=== PATIENT | female | born 1950 | race Caucasian/White ===

== ENCOUNTER 2016-11-17 20:15 | Inpatient (IN) | payer MEDICARE, BC ==
[~2016-11-17] VITALS: Ht 167.6 cm; Wt 90.5 kg
[2016-11-17] MEDS ORDERED: LACTATED RINGER'S 1000 ML IV SCH (21:15)
[2016-11-17] MEDS ORDERED: INSULIN HUMAN REGULAR 1,000 UNITS/10 ML VIAL SQ PRN (21:15)
[2016-11-17] MEDS ORDERED: METOPROLOL TARTRATE 25 MG TAB PO PRN (21:15)
[2016-11-17 21:19] VITALS: BP 137/73; PULSE 61; RESP 18; TEMP 97.7; O2SAT 97
[2016-11-17] MEDS: SODIUM CHLORID 0.9% 500 ML IV SCH (21:58)
[2016-11-17] MEDS ORDERED: ACETAMINOPHEN/HYDROcodone 325 MG/7.5 MG TAB PO PRN (23:00)
[2016-11-17] MEDS ORDERED: MORPHINE SULFATE 4 MG/ML INJ IV PRN (23:00)
[2016-11-17] MEDS: ACETAMINOPHEN/HYDROcodone 325 MG/10 MG TAB PO PRN (23:23)
[2016-11-18 00:53] VITALS: BP 124/73; PULSE 70; RESP 18; TEMP 97.9; O2SAT 98
[2016-11-18] MEDS: ONDANSETRON HCL 4 MG/2 ML VIAL IVP PRN ×2 (03:45→18:35)
[2016-11-18 04:37] VITALS: BP 130/78; PULSE 60; RESP 18; TEMP 98.2; O2SAT 97
[2016-11-18] MEDS: ACETAMINOPHEN/HYDROcodone 325 MG/10 MG TAB PO PRN ×4 (05:53→21:18)
[2016-11-18 06:22] LABS: AUTOMATED NEUTROPHIL # 7.4 TH/MM3 (1.8-7.7); BASOPHIL # 0.1 TH/MM3 (0-0.2); BASOPHIL % 1.2 % (0.0-2.0); EOSINOPHIL # 0.3 TH/MM3 (0-0.4); EOSINOPHIL % 2.9 % (0.0-4.0); HEMO FLAGS DIFF FINAL; LYMPH % 19.4 % (9.0-44.0); LYMPHOCYTE # 2.1 TH/MM3 (1.0-4.8); MEAN CELL VOLUME 89.1 FL (80.0-100.0); MEAN CORPUSCULAR HEMOGLOBIN 30.3 PG (27.0-34.0); MEAN CORPUSCULAR HGB CONC 34.1 % (32.0-36.0); MONO % 6.9 % (0.0-8.0); NEUT % 69.6 % (16.0-70.0); PLATELET COUNT 213 TH/MM3 (150-450); RED BLOOD COUNT 4.04 MIL/MM3 (4.00-5.30); RED CELL DISTRIBUTION WIDTH 12.3 % (11.6-17.2); WHITE BLOOD COUNT 10.6 TH/MM3 (4.0-11.0)
--- NOTE | 2016-11-18 06:34 | PD.ORT.PN ---
Subjective Subjective Remarks s/p fall with left distal humerus fx reports left arm pain. no other complaints Objective Vitals Vital Signs Date Time Temp Pulse Resp B/P Pulse Ox O2 Delivery O2 Flow Rate FiO2 11/18/16 04:37 98.2 60 18 130/78 97 11/18/16 00:53 97.9 70 18 124/73 98 11/17/16 21:19 97.7 61 18 137/73 97 Result Diagram: 11/18/16 0534 Objective Remarks LUE: +long arm splint. full sensation to median/ulnar nerve. good wrist/finger extension. good cap refill Assessment & Plan Assessment and Plan 1) Left Distal Humerus Fx -consents -surgery today Tony Campos Nov 18, 2016 06:34
[2016-11-18 06:38] LABS: INTERNATIONAL NORMALIZED RATIO 0.9 RATIO; PROTHROMBIN TIME - PATIENT 9.7 SEC (9.8-11.6)
[2016-11-18 06:44] LABS: BICARBONATE 29.6 MEQ/L (21.0-32.0); POTASSIUM 4.3 MEQ/L (3.5-5.1)
[2016-11-18] MEDS ORDERED: PROPOFOL 200 MG/20 ML AMP IV ONE (07:51)
[2016-11-18] MEDS ORDERED: ePHEDrine/NS 50 MG/5 ML SYR IV ONE (07:51)
--- NOTE | 2016-11-18 07:57 | MH ---
cc: SOLANGE OCHOA DATE OF ADMISSION: 11/17/2016 REASON FOR ADMISSION Left distal humerus fracture. HISTORY OF PRESENT ILLNESS Fransisca Beltre is a 66-year-old female who lives near [place], [place]. She had a fall approximately 4 days ago at home. She landed on her left side. She had immediate left arm pain and deformity. She went to [facility] in [place]. X-rays revealed a displaced left distal humerus fracture. The patient was subsequently transferred to [place] for definitive treatment of this injury. She is unclear if she had any dizziness or syncope at the time. The patient has a history of hypertension and diabetes. The patient states that she stopped taking her diabetes and hypertensive medications several weeks ago and was trying some homeopathic treatment. She had very high blood sugars whenever she presented to the [facility]. She is currently awake and alert on the orthopedic floor. Her only complaint is her left arm. The pain is worse with movement and is improved with rest. PAST MEDICAL HISTORY ILLNESSES 1. Hypertension. 2. Diabetes. MEDICATIONS The patient had stopped her home medications prior to her fall. She normally takes Glucophage and an antihypertensive. ALLERGIES No known drug allergies. SOCIAL HISTORY The patient lives at home with her . She denies alcohol, tobacco or drug use. REVIEW OF SYSTEMS The patient denies headache, visual changes, neck pain, chest pain, shortness of breath, abdominal pain, nausea, vomiting, recent weight loss, numbness or tingling of extremities. She complains of left arm pain. FAMILY HISTORY Noncontributory. PHYSICAL EXAMINATION GENERAL: The patient is a well-developed, well-nourished 66-year-old female in no acute distress. She is awake and alert. She is alert and oriented x3. VITAL SIGNS: Temperature 98.2, pulse 60, respirations 18, blood pressure 130/78. O2 sat is 97% on room air. HEAD: The patient is normocephalic. Pupils are equal. NECK: Soft, nontender. Trachea is midline. CHEST: Lungs are clear. HEART: The patient has a regular heart rate. ABDOMEN: Soft, nontender, nondistended. EXTREMITIES: Examination of the right arm reveals no pain with shoulder, elbow or wrist motion. She has intact sensation in all fingers. She has good capillary refill in all fingers. Skin is intact. Radial pulse is palpable. Examination of left arm reveals minimal tenderness around her shoulder and wrist. She is diffusely tender around the distal humerus and elbow. She has pain with any movement of the shoulder or elbow. She has moderate swelling of her hand. She is able to flex and extend her fingers and sensation is intact in radial, ulnar and median nerve distributions. Examination of bilateral lower extremities reveals no significant pain with hip, knee or ankle motion. Skin is intact to both feet. Sensation is intact to both feet. She has good capillary refill in her toes. X-RAYS X-rays of the left humerus were reviewed. X-rays reveal a displaced left distal humerus shaft fracture. IMPRESSION 1. Hypertension. 2. Diabetes. 3. Displaced left distal humerus fracture. PLAN The treatment options were discussed with the patient. At this point I would recommend open reduction, internal fixation of left distal humerus. The risks of surgery include bleeding, infection, injuries to arteries, nerves and blood vessels, nonunion, malunion, injury to radial nerve, weakness or numbness of hand, as well as medical complications including blood clot, stroke, heart attack and . All questions were answered. I will plan on surgery today. A mid-level provider in my office (nurse practitioner or physician gift shop assistant) may see this patient on follow-up visits and continue to implement the objectives of this plan including: Starting or adjusting medications, injections , cast application, orthotics, brace application, physical therapy, radiological studies (including x-ray, MRI, CT, ultrasound, bone scan), vascular studies, neurologic studies, specialist consultation, and proceeding with surgical management, as appropriate. MD FRANCHESCA Field/ARNOLD /7:26 AM /7:41 AM RAMÓN
[2016-11-18 08:06] VITALS: BP 182/98; PULSE 69; RESP 16; TEMP 97.7; O2SAT 100
[2016-11-18] MEDS ORDERED: GENTAMICIN SULFATE 80 MG/2 ML VIAL ONE (08:22)
[2016-11-18] MEDS ORDERED: ACETAMINOPHEN 1000 MG/100 ML VIAL IV ONE (08:30)
[2016-11-18] MEDS ORDERED: ONDANSETRON HCL 4 MG/2 ML VIAL ONE (08:31)
[2016-11-18] MEDS ORDERED: DEXAMETHASONE SOD PHOS 4 MG/ML VIAL ONE (08:31)
[2016-11-18] MEDS ORDERED: FAMOTIDINE 20 MG/2 ML VIAL ONE (08:31)
[2016-11-18] MEDS ORDERED: VANCOMYCIN HCL 1000 MG VIAL ONE (08:44)
[2016-11-18] MEDS ORDERED: ceFAZolin INJ 1,000 MG VIAL ONE (08:44)
[2016-11-18] MEDS ORDERED: SODIUM CHLOR 0.9% 250 ML INJ 250 ML ONE (08:45)
[2016-11-18] MEDS ORDERED: INFLUENZA VIRUS VACCINE (QUADRIVALENT) 0.5 ML SYR IM ONE (10:00)
[2016-11-18] MEDS ORDERED: MORPHINE SULFATE 4 MG/ML INJ IV PUSH PRN (11:00)
[2016-11-18] MEDS ORDERED: SODIUM CHLORIDE 0.9% FLUSH 5 ML FLUSH IVF PRN (11:00)
[2016-11-18] MEDS ORDERED: diphenhydrAMINE HCL 25 MG CAP PO PRN (11:00)
--- NOTE | 2016-11-18 11:05 | PD.OP ---
cc: Ramon Goddard MD Operative Report Date of Surgery: Nov 18, 2016 Preoperative Diagnosis: Left humerus shaft fracture Postoperative Diagnosis: Procedure: Open reduction internal fixation left humerus Anesthesia: Gen. Surgeon: Ramon Goddard Strategic Development Manager(s): SAGE Campos PA-C The surgical procedure was assisted by my physician customer relations assistant. My P.A. presence was necessary throughout this case for the manipulation and positioning of the surgical extremity. My P.A. was assisting me throughout the duration of this procedure. The skill set of a physician customer relations assistant was medically necessary to complete this procedure. During the surgical case the information technology audit manager was working at the back table and the physician customer relations assistant was directly assisting me. Operation and Findings: Patient was seen and evaluated preoperatively. Treatment options were discussed regarding humerus fracture including surgical and nonsurgical treatments. After detailed discussion of risk and benefits of procedure patient wishes to proceed with surgery. Risks of surgery include bleeding, infection, nonunion, malunion, painful hardware, loss of motion of shoulder and elbow, weakness and numbness of arm, as well as medical competitions including blood clots stroke and . Patient was brought to operating room and placed on the OR table. GETA was administered by anesthesiologist. Patient was positioned in lateral decubitus position. Extremities were well-padded. Axillary roll was placed. Operative arm and shoulder were prepped with alcohol followed by Hibiclens and draped usual sterile fashion. Timeout procedure was performed. IV antibiotics were given prior to incision. A standard posterior approach was utilized. Subcutaneous tissues was dissected with Bovie. The triceps muscle was split midline. Distally the lateral border of the triceps was elevated. The radial nerve was identified and protected throughout the procedure. The nerve was intact. The fracture was identified. Soft tissue was removed from the fracture site. Fracture site was cleaned with curettes. At this point the fracture was reduced using fracture tenaculums. Multiplanar fluoroscopy confirmed excellent of fracture. A Synthes 3.5 plate was contoured to fit the humerus. Plate was provisionally held the bone with K wires. 3.5 cortical lag screws were placed through the plate. Good compression was obtained across the fracture site. Next, 3.5 cortical screws were placed on each side of the fracture to compress plate to bone. Multiple screws were placed in each side of the fracture. All screws were predrilled and premeasured for appropriate length. Final fluoroscopy revealed excellent alignment of fracture with well-placed hardware. Incision was thoroughly irrigated. Fascia was closed with #1 Vicryl, subcutaneous tissues closed with 3-0 Vicryl, and skin was closed with darrius. Sterile dressings were applied. Needle and sponge counts were correct. Patient was placed into a sling, and then transferred to recovery room in stable condition Ramon Goddard MD Nov 18, 2016 11:05
[2016-11-18] MEDS ORDERED: HYDR-3366 PO (11:34)
--- NOTE | 2016-11-18 11:36 | HHI.FF ---
Face to Face Verification Diagnosis: (1) Right humeral fracture Occupational Therapy Right UE Weight Bearing: Non WB Right UE Range of Motion: Passive ROM Nursing Nursing: Juanita teaching, Dressing changes Dressing Changes: Daily dressing change, Galdino wrap, 4x4s, Xeroform, Coverderm/ Primapore (ok to switch to coverderm/primapore once drainage has stopped) I have seen patient Fransisca Araya on 11/18/16. My clinical findings support the need for the requested home health care services because: Ltd mobility - disease progression I certify that my clinical findings support that this patient is homebound because: Post-op weakness Tony Campos Nov 18, 2016 11:36
[2016-11-18] MEDS ORDERED: LABETALOL HCL 100 MG/20 ML VIAL ONE (11:44)
[2016-11-18] MEDS ORDERED: fentaNYL CITRATE 250 MCG/5 ML AMP ONE (11:53)
[2016-11-18] MEDS ORDERED: DO NOT ADM ANY ANTICOAGULANT DRUGS XX PRN (12:00)
[2016-11-18] MEDS ORDERED: *ONDANSETRON 4 MG VIAL PERIprocedural Use ONLY ONE (12:01)
[2016-11-18] MEDS ORDERED: LORazepam 2 MG/ML VIAL ONE (12:15)
[2016-11-18] MEDS: CALCIUM/VITAMIN D 250 MG/125 U TAB PO SCH ×2 (13:00→17:04)
--- NOTE | 2016-11-18 13:43 | RADRPT ---
EXAM DATE/TIME: 11/18/2016 10:46 [facility] COMPARISON: No previous studies available for comparison. INDICATIONS: ORIF left humerus. MEDICAL HISTORY: None. SURGICAL HISTORY: None. ENCOUNTER: Initial ACUITY: 1 day PAIN SCORE: Non-responsive. LOCATION: Left humerus. FINDINGS: Plate with screws is seen bridging the humerus fracture. Alignment is anatomic. CONCLUSION: Anatomic alignment. Cesar Peralta MD FACR on November 18, 2016 at 12:59 Board Certified Radiologist. This report was verified electronically.
[2016-11-18] MEDS: SODIUM CHLORID 0.9% 500 ML IV SCH (13:55)
--- NOTE | 2016-11-18 14:46 | PD.CONS ---
[facility] service Reason for Consult Management of hypertension, history of diabetes type 2 Primary Care Physician Non-Staff Diagnoses: History of Present Illness Patient is a 66-year-old female with known history of hypertension, diabetes type 2 her on her own decided to discontinue all her medications and going to alternate alternative medications a year ago. In the past she was on glyburide. She was transferred here from [facility] after tripping on something on the ground and sustained an oblique fracture of the left humeral shaft.. She was admitted under orthopedic service and underwent procedure. [facility] management of hypertension and diabetes. Patient currently denies any pain nausea or vomiting. Baseline is up ambulatory with no assistive device. She doesn't regular check her blood sugars. On review of transfer records from [facility] her hemoglobin A1c was 12.6 .. she was started on Norvasc 10 mg daily and Levemir 10 units at bedtime. An echo was done which shows an ejection fraction of 80%. She was placed on hydrocodone 5/325 when necessary every 6 for pain Review of Systems Constitutional: DENIES: Fever, Weight loss, Chills, Change in appetite Eyes: DENIES: Blurred vision, Double Vision Ears, nose, mouth, throat: DENIES: Tinnitus, Ear Pain, Epistaxis, Odynophagia Respiratory: DENIES: Cough, Hemoptysis, Sputum production, Shortness of breath Cardiovascular: DENIES: Chest pain, Palpitations, Dyspnea on Exertion, Lower Extremity Edema, Orthopnea Gastrointestinal: DENIES: Black stools, Bloody stools, Difficulty Swallowing, Anorexia Genitourinary: DENIES: Urgency, Hematuria, Vaginal discharge Musculoskeletal: DENIES: Joint pain, Stiffness Integumentary: DENIES: Pruritus Hematologic/lymphatic: DENIES: Bruising Immunologic/allergic: DENIES: Urticaria Neurologic: DENIES: Headache, Speech Problems, Tremor Psychiatric: DENIES: Suicidal Ideation, Homicidal Ideation Past Family Social History Allergies: Coded Allergies: No Known Allergies (Unverified , 11/17/16) patient reports NKA Past Medical History Hypertension Diabetes type 2 History of arthritis Past Surgical History Hysterectomy Gallbladder surgery Reported Medications Per family at one point she was on glyburide which she took herself off medications Some antihypertensive medications a year ago. Family History Noncontributory Social History Nonsmoker, no history of alcohol use Physical Exam Vital Signs Vital Signs Date Time Temp Pulse Resp B/P Pulse Ox O2 Delivery O2 Flow Rate FiO2 11/18/16 12:30 73 15 188/96 99 Nasal Cannula 4 11/18/16 12:15 62 14 191/89 99 Nasal Cannula 4 11/18/16 12:00 73 14 171/69 99 Nasal Cannula 4 11/18/16 11:45 76 14 199/96 99 Nasal Cannula 4 11/18/16 11:43 96.0 72 14 210/96 96 Nasal Cannula 4 11/18/16 08:06 97.7 69 16 182/98 100 11/18/16 04:37 98.2 60 18 130/78 97 11/18/16 00:53 97.9 70 18 124/73 98 11/17/16 21:19 97.7 61 18 137/73 97 Physical Exam GENERAL: in no apparent distress. SKIN: No rashes, ecchymoses or lesions. Cool and dry. HEAD: Atraumatic. Normocephalic. No temporal or scalp tenderness. EYES: Pupils equal round and reactive. Extraocular motions intact. No scleral icterus. No injection or drainage. ENT: Nose without bleeding, purulent drainage or septal hematoma. Throat without erythema, tonsillar hypertrophy or exudate. Uvula midline. Airway patent. NECK: Trachea midline. No JVD Supple, nontender, no meningeal signs. CARDIOVASCULAR: Regular rate and rhythm without murmurs, gallops, or rubs. RESPIRATORY: Clear to auscultation. Breath sounds equal bilaterally. No wheezes , rales, or rhonchi. GASTROINTESTINAL: Abdomen soft, non-tender, nondistended. No hepato-splenomegaly , or palpable masses. No guarding. MUSCULOSKELETAL: Left UE- cast in place. no lower extremities edema noted. No calf tenderness. Negative Homans sign bilaterally. NEUROLOGICAL: Awake and alert. Cranial nerves II through XII intact. Motor and sensory grossly within normal limits. Five out of 5 muscle strength in all muscle groups. Normal speech. Laboratory Laboratory Tests Test 11/18/16 11/18/16 05:34 05:52 White Blood Count 10.6 Red Blood Count 4.04 Hemoglobin 12.2 Hematocrit 36.0 Mean Corpuscular Volume 89.1 Mean Corpuscular Hemoglobin 30.3 Mean Corpuscular Hemoglobin 34.1 Concent Red Cell Distribution Width 12.3 Platelet Count 213 Mean Platelet Volume 8.9 Neutrophils (%) (Auto) 69.6 Lymphocytes (%) (Auto) 19.4 Monocytes (%) (Auto) 6.9 Eosinophils (%) (Auto) 2.9 Basophils (%) (Auto) 1.2 Neutrophils # (Auto) 7.4 Lymphocytes # (Auto) 2.1 Monocytes # (Auto) 0.7 Eosinophils # (Auto) 0.3 Basophils # (Auto) 0.1 CBC Comment DIFF FINAL Differential Comment Sodium Level 138 Potassium Level 4.3 Chloride Level 101 Carbon Dioxide Level 29.6 Anion Gap 7 Blood Urea Nitrogen 34 Creatinine 1.52 Estimat Glomerular Filtration 34 Rate Random Glucose 212 Calcium Level 8.2 Prothrombin Time 9.7 Prothromb Time International 0.9 Ratio Result Diagram: 11/18/16 0534 11/18/16 0534 Assessment and Plan Assessment and Plan 66 year old female status post fall sustaining S/P ORIF Oblique fracture of the left humeral shaft fracture 11/18 Orthopedics following History of hypertension uncontrolled noncompliant with medications will restart patient on amlodipine 10 mg by mouth daily start clonidine 0.1 mg every 6 when necessary with parameters 2 g sodium diet. check lipid panel in am Diabetes type 2 hemoglobin A1c of 12.1 we'll check fingersticks 3 times a day and at bedtime cover with sliding scale start patient on Levemer 10 units at bedtime We'll get a dietitian consult for nutritional counseling. Acute kidney injury Start patient on IV fluid follow BMP BMP in am Thank you for this consult we'll follow patient in-house with you Ade Gamez MD Nov 18, 2016 14:46 Ade Gamez MD Nov 18, 2016 14:46
[2016-11-18] MEDS ORDERED: GLUCAGON 1 MG/ML VIAL OTHER PRN (15:00)
[2016-11-18] MEDS ORDERED: DEXTROSE 50% IN WATER 50 ML VIAL(D50) IV PUSH PRN (15:00)
[2016-11-18] MEDS ORDERED: cloNIDine HCL 0.1 MG TAB PO PRN (15:00)
[2016-11-18] MEDS: INSULIN NovoLIN REGULAR SUPPLEMENTAL SCALE SQ SCH ×2 (17:03→21:29)
[2016-11-18] MEDS: SODIUM CHLOR 0.9% 1000 ML INJ 1,000 ML IV SCH (17:03)
[2016-11-18] MEDS: ceFAZolin 2 GM PREMIX 50 ML IV SCH (17:04)
[2016-11-18 18:36] VITALS: BP 152/75; PULSE 80; RESP 20; TEMP 98.6; O2SAT 95
[2016-11-18 20:00] VITALS: BP 145/72; PULSE 76; RESP 16; TEMP 97; O2SAT 97
[2016-11-18] MEDS: DOCUSATE SODIUM 50 MG/SENNA 8.6 MG TAB PO SCH (21:17)
[2016-11-18] MEDS: SODIUM CHLORIDE 0.9% FLUSH 5 ML FLUSH IVF SCH (21:18)
[2016-11-19] VITALS: BP 151/74; PULSE 87; RESP 16; TEMP 98.4; O2SAT 97
[2016-11-19] MEDS: ceFAZolin 2 GM PREMIX 50 ML IV SCH ×2 (01:15→09:02)
[2016-11-19] MEDS: ACETAMINOPHEN/HYDROcodone 325 MG/10 MG TAB PO PRN ×6 (02:07→20:36)
[2016-11-19 04:00] VITALS: BP 167/85; PULSE 91; RESP 16; TEMP 97.6; O2SAT 98
[2016-11-19] MEDS: SODIUM CHLOR 0.9% 1000 ML INJ 1,000 ML IV SCH ×2 (05:18→19:36)
[2016-11-19] MEDS: INSULIN NovoLIN REGULAR SUPPLEMENTAL SCALE SQ SCH (05:46)
--- NOTE | 2016-11-19 06:51 | PD.ORT.PN ---
Subjective Subjective Remarks POD 1 s/p ORIF left humerus doing well. out of bed. family reports was confused overnight from meds. states pain in arm . Objective Vitals Vital Signs Date Time Temp Pulse Resp B/P Pulse Ox O2 Delivery O2 Flow Rate FiO2 11/19/16 04:00 97.6 91 16 167/85 98 11/19/16 00:00 98.4 87 16 151/74 97 11/18/16 20:00 97.0 76 16 145/72 97 11/18/16 19:35 18 11/18/16 18:36 98.6 80 20 152/75 95 11/18/16 13:30 98.3 69 15 174/85 99 Nasal Cannula 3 11/18/16 13:00 72 15 178/88 99 Nasal Cannula 3 11/18/16 12:45 73 15 177/89 99 Nasal Cannula 3 11/18/16 12:30 73 15 188/96 99 Nasal Cannula 4 11/18/16 12:15 62 14 191/89 99 Nasal Cannula 4 11/18/16 12:00 73 14 171/69 99 Nasal Cannula 4 11/18/16 11:45 76 14 199/96 99 Nasal Cannula 4 11/18/16 11:43 96.0 72 14 210/96 96 Nasal Cannula 4 11/18/16 08:06 97.7 69 16 182/98 100 I/O 11/18/16 11/18/16 11/18/16 11/19/16 11/19/16 11/19/16 07:00 15:00 23:00 07:00 15:00 23:00 Intake Total 1800 ml 324 ml 958 ml Output Total 900 ml Balance 900 ml 324 ml 958 ml Intake Oral 240 ml 480 ml IV Total 84 ml 478 ml Other 1800 ml Output Urine Total 700 ml Estimated Blood Loss 200 ml # Voids 3 2 2 # Bowel Movements 0 Result Diagram: 11/18/1634 11/18/1634 Objective Remarks LUE: dressings clean and dry. intact. good extension of wrist and fingers. full sensation to median/ulnar nerve. +swelling of hand Assessment & Plan Assessment and Plan 1) Left Distal Humerus Fx s/p ORIF - POD 1 -NWB -OT for pendulums -daily dressing changes POD 2 -plan for DC home today [facility] if doing well -f/u with [facility] in 2 weeks Tony Campos Nov 19, 2016 06:51
[2016-11-19 08:00] VITALS: BP 140/61; PULSE 67; RESP 16; TEMP 97.4; O2SAT 98
[2016-11-19] MEDS: ONDANSETRON HCL 4 MG/2 ML VIAL IVP PRN ×3 (08:56→21:05)
[2016-11-19] MEDS: SODIUM CHLORIDE 0.9% FLUSH 5 ML FLUSH IVF SCH ×2 (09:00→20:37)
[2016-11-19] MEDS: CALCIUM/VITAMIN D 250 MG/125 U TAB PO SCH ×4 (09:02→20:35)
[2016-11-19] MEDS: DOCUSATE SODIUM 50 MG/SENNA 8.6 MG TAB PO SCH ×2 (09:02→20:35)
[2016-11-19 09:34] LABS: ALKALINE PHOSPHATASE 108 U/L (45-117); ALT (GPT) 33 U/L (10-53); ANION GAP 11 MEQ/L (5-15); AST (GOT) 28 U/L (15-37); BICARBONATE 25.7 MEQ/L (21.0-32.0); CHLORIDE 100 MEQ/L (98-107); GLOMERULAR FILTRATION RATE 33 ML/MIN (>89); HDL CHOLESTEROL 47.5 MG/DL (40.0-60.0); LDL CHOLESTEROL 116 MG/DL (0-99); POTASSIUM 4.3 MEQ/L (3.5-5.1); SODIUM (NA) 137 MEQ/L (136-145); TOTAL BILIRUBIN ADULT 0.4 MG/DL (0.2-1.0)
[2016-11-19 09:52] LABS: BLOOD UREA NITROGEN 31 MG/DL (7-18)
[2016-11-19] MEDS ORDERED: INFLUENZA VIRUS VACCINE (QUADRIVALENT) 0.5 ML SYR IM ONE (10:00)
[2016-11-19] MEDS ORDERED: GLUCAGON 1 MG/ML VIAL OTHER PRN (11:30)
[2016-11-19] MEDS ORDERED: DEXTROSE 50% IN WATER 50 ML VIAL(D50) IV PUSH PRN (11:30)
[2016-11-19] MEDS: INSULIN ASPART 1,000 UNITS/10 ML VIAL SQ SCH ×2 (11:37→15:33)
--- NOTE | 2016-11-19 11:55 | HHI.PR ---
Subjective Remarks Follow-up visit hypertension, DM 2, at this post ORIF for Oblique fracture of the left humeral shaft. Patient seen today. Son at the bedside. Admits to not taking diabetes medication previously given by primary care doctor. States she wants to switch primary care doctor. Discuss lab results, importance of medication compliance especially with diabetes, hypertension and hyperlipidemia. Patient and son agrees with the plan. Denies pain and discomfort. Denies SOB/ dyspnea. Denies chestpain, palpitations, headaches, dizziness. Denies fevers, chills, n/v/d. Objective Vitals Vital Signs Date Time Temp Pulse Resp B/P Pulse Ox O2 Delivery O2 Flow Rate FiO2 11/19/16 08:00 97.4 67 16 140/61 98 11/19/16 04:00 97.6 91 16 167/85 98 11/19/16 00:00 98.4 87 16 151/74 97 11/18/16 20:00 97.0 76 16 145/72 97 11/18/16 19:35 18 11/18/16 18:36 98.6 80 20 152/75 95 11/18/16 13:30 98.3 69 15 174/85 99 Nasal Cannula 3 11/18/16 13:00 72 15 178/88 99 Nasal Cannula 3 11/18/16 12:45 73 15 177/89 99 Nasal Cannula 3 11/18/16 12:30 73 15 188/96 99 Nasal Cannula 4 11/18/16 12:15 62 14 191/89 99 Nasal Cannula 4 11/18/16 12:00 73 14 171/69 99 Nasal Cannula 4 I/O 11/18/16 11/18/16 11/18/16 11/19/16 11/19/16 11/19/16 07:00 15:00 23:00 07:00 15:00 23:00 Intake Total 1800 ml 324 ml 958 ml 125 ml Output Total 900 ml Balance 900 ml 324 ml 958 ml 125 ml Intake Oral 240 ml 480 ml IV Total 84 ml 478 ml 125 ml Other 1800 ml Output Urine Total 700 ml Estimated Blood Loss 200 ml # Voids 3 2 2 # Bowel Movements 0 Result Diagram: 11/18/16 0534 11/19/16 0846 Imaging Last Impressions Humerus X-Ray 11/18/16 0000 Signed Impressions: Service Date/Time: Friday, November 18, 2016 10:46 - CONCLUSION: Anatomic alignment. Cesar Peralta MD FACR Objective Remarks GENERAL: This is a well-nourished, well-developed patient, in no apparent distress. HEENT: Normocephalic. Pupils equal round and reactive. Nose without bleeding. Airway patent. NECK: Trachea midline. No JVD. Supple. CARDIOVASCULAR: Regular rate and rhythm without murmurs, gallops, or rubs. RESPIRATORY: Clear to auscultation. Breath sounds equal bilaterally. No wheezes , rales, or rhonchi. GASTROINTESTINAL: Abdomen soft, non-tender, nondistended. Bowel Sounds normoactive x4. MUSCULOSKELETAL: Extremities without clubbing, cyanosis. Left upper extremity edema, left hand edema +2 [address] and cast in place. NEUROLOGICAL: Awake and alert. Oriented x 3. No focal neuro deficit. TURNER. Normal speech. Procedures Status post ORIF oblique fracture of the left humeral shaft A/P Problem List: (1) Right humeral fracture ICD Code: S42.301A Status: Acute (2) HLD (hyperlipidemia) ICD Code: E78.5 Status: Acute (3) DM (diabetes mellitus) ICD Code: E11.9 Status: Acute (4) HTN (hypertension) ICD Code: I10 Status: Acute Assessment and Plan Patient is a 66-year-old white female who came in to the hospital status post ORIF for oblique fracture of the left humeral shaft. Consulted for medical management. Status post ORIF for oblique fracture of the left humeral shaft -orthopedic service management - PT/OT consult - Pain management Uncontrolled, DM 2 - hemoglobin A1c 12.6 - done at [facility] - Start aspart insulin sliding scale, Levemir 10 units daily at bedtime - Accu-Cheks before meals and at bedtime - inclusion special educator - Discussed extensively with patient and son compliance of medication management. Unable to start metformin for now secondary to increase creatinine , poor kidney function. Poor kidney function possibly secondary to long-term diabetes uncontrolled. Patient agrees to use insulin when discharged home. Will follow-up with a new PCP for further management. HLD - calculated AES CVD risk 10 years 23% - Discussed with patient, and family member - son. Increased risk for CVD event. Will start Lipitor 40mg for now. Possible need for increase to 80 mg in outpatient setting. Needs to follow-up with PCP to monitor lipid profile in 3 months. Agrees with plan. Uncontrolled, HTN - continue amlodipine 10 mg daily, will add lisinopril 10 mg daily, clonidine when necessary - Monitor BP trend DVT prop SCD and early ambulation. Written by Nena Tracy, acting as scribe for Dr. Peace on 11/19/16 at 10:24. The documentation accurately reflects the work performed [id number] by me, Ronald Peace D.O on 11/19/16 at 10:24. Discharge Planning Plan to discharge home tomorrow as per primary team. Problem Qualifiers (1) DM (diabetes mellitus): Ingrid Peace DO Nov 19, 2016 11:55 Nena Dunn Nov 19, 2016 13:15
[2016-11-19 12:29] VITALS: BP 186/83; PULSE 62; RESP 20; TEMP 97.5; O2SAT 95
[2016-11-19 15:33] VITALS: BP 158/70; PULSE 58; RESP 20; TEMP 97.5; O2SAT 100
[2016-11-19] MEDS: INSULIN ASPART SUPPLEMENTAL SCALE SQ SCH ×2 (15:33→20:49)
[2016-11-19 20:00] VITALS: BP 193/80; PULSE 63; RESP 18; TEMP 97.6; O2SAT 100
[2016-11-19] MEDS: ATORVASTATIN 40 MG TAB PO SCH (20:35)
[2016-11-19] MEDS: BISACODYL EC 5 MG TABEC PO SCH (20:36)
[2016-11-19] MEDS: POLYETHYLENE GLYCOL 17 GM PKG PO SCH (20:37)
[2016-11-19] MEDS: MAGNESIUM HYDROXIDE SUSP 30 ML CUP PO SCH (20:37)
[2016-11-19] MEDS: INSULIN DETEMIR 100 UNITS/ML VIAL SQ SCH (20:49)
[2016-11-20] VITALS (9 sets, daily range): BP systolic 118–203; BP diastolic 59–86; PULSE 56–98; RESP 16–18; TEMP 96.9–98.1; O2SAT 95–100
[2016-11-20] MEDS: ACETAMINOPHEN/HYDROcodone 325 MG/10 MG TAB PO PRN ×6 (02:42→23:54)
[2016-11-20] MEDS: ONDANSETRON HCL 4 MG/2 ML VIAL IVP PRN ×3 (03:32→14:20)
[2016-11-20] MEDS: INSULIN ASPART SUPPLEMENTAL SCALE SQ SCH ×4 (05:53→20:32)
--- NOTE | 2016-11-20 06:42 | PD.ORT.PN ---
Subjective Subjective Remarks POD 2 s/p ORIF left humerus doing well. was out of bed yesterday. reports nausea. Objective Vitals Vital Signs Date Time Temp Pulse Resp B/P Pulse Ox O2 Delivery O2 Flow Rate FiO2 11/20/16 04:00 98.1 70 18 154/71 99 11/20/16 01:46 66 154/86 11/20/16 00:05 97.8 61 16 203/78 97 11/19/16 20:00 97.6 63 18 193/80 100 11/19/16 18:02 Nasal Cannula 3.00 11/19/16 15:33 97.5 58 20 158/70 100 11/19/16 12:29 97.5 62 20 186/83 95 11/19/16 08:00 97.4 67 16 140/61 98 I/O 11/19/16 11/19/16 11/19/16 11/20/16 11/20/16 11/20/16 07:00 15:00 23:00 07:00 15:00 23:00 Intake Total 958 ml 365 ml 480 ml 240 ml Balance 958 ml 365 ml 480 ml 240 ml Intake Oral 480 ml 240 ml 480 ml 240 ml IV Total 478 ml 125 ml # Voids 2 2 2 2 # Bowel Movements 0 0 0 Result Diagram: 11/18/16 0534 11/19/16 0846 Objective Remarks LUE: dressings clean and dry. intact. good extension of wrist and fingers. full sensation to median/ulnar nerve. +swelling of hand Assessment & Plan Assessment and Plan 1) Left Distal Humerus Fx s/p ORIF - POD 2 -NWB -OT for pendulums -daily dressing changes -plan for DC home today [facility] if doing well -f/u with [facility] or [facility] in 2 weeks -control nausea -if not doing well, ok for DC to rehab. CM for arrangements if needed Tony Campos Nov 20, 2016 06:42
[2016-11-20] MEDS ORDERED: ZOFR4TAB PO (06:44)
[2016-11-20] MEDS: DOCUSATE SODIUM 50 MG/SENNA 8.6 MG TAB PO SCH ×2 (08:24→20:24)
[2016-11-20] MEDS: BISACODYL EC 5 MG TABEC PO SCH ×2 (08:24→20:24)
[2016-11-20] MEDS: MAGNESIUM HYDROXIDE SUSP 30 ML CUP PO SCH ×2 (08:25→20:24)
[2016-11-20] MEDS: SODIUM CHLORIDE 0.9% FLUSH 5 ML FLUSH IVF SCH ×2 (08:25→20:25)
[2016-11-20] MEDS: INSULIN ASPART 1,000 UNITS/10 ML VIAL SQ SCH ×3 (08:25→17:00)
[2016-11-20] MEDS: SODIUM CHLOR 0.9% 1000 ML INJ 1,000 ML IV SCH ×2 (08:34→20:26)
[2016-11-20] MEDS: CALCIUM/VITAMIN D 250 MG/125 U TAB PO SCH ×2 (08:35→18:09)
[2016-11-20] MEDS ORDERED: LISINOPRIL 10 MG TAB PO SCH (09:00)
[2016-11-20] MEDS ORDERED: MAGNESIUM CITRATE SOLN 300 ML BTL PO ONE (11:45)
[2016-11-20] MEDS ORDERED: BISACODYL 10 MG SUPP RECTAL PRN (11:45)
--- NOTE | 2016-11-20 13:49 | HHI.PR ---
Subjective Remarks Follow-up visit hypertension, DM 2, at this post ORIF for Oblique fracture of the left humeral shaft. Patient seen today. at the bedside. Discussed elevated blood pressure and BP med adjustments. Patient appears drowsy, has taken pain medication prior to us visiting the room. Denies pain and discomfort. Denies SOB/ dyspnea. Denies chestpain, palpitations, headaches , dizziness. Denies fevers, chills, n/v/d. Objective Vitals Vital Signs Date Time Temp Pulse Resp B/P Pulse Ox O2 Delivery O2 Flow Rate FiO2 11/20/16 12:00 97.6 56 16 123/59 100 11/20/16 11:11 98 Nasal Cannula 3.00 11/20/16 07:25 97.9 57 16 157/76 98 11/20/16 04:00 98.1 70 18 154/71 99 11/20/16 01:46 66 154/86 11/20/16 00:05 97.8 61 16 203/78 97 11/19/16 20:00 97.6 63 18 193/80 100 11/19/16 18:02 Nasal Cannula 3.00 11/19/16 15:33 97.5 58 20 158/70 100 I/O 11/19/16 11/19/16 11/19/16 11/20/16 11/20/16 11/20/16 07:00 15:00 23:00 07:00 15:00 23:00 Intake Total 958 ml 365 ml 480 ml 240 ml Balance 958 ml 365 ml 480 ml 240 ml Intake Oral 480 ml 240 ml 480 ml 240 ml IV Total 478 ml 125 ml # Voids 2 2 2 2 # Bowel Movements 0 0 0 Result Diagram: 11/18/16 0534 11/19/16 0846 Objective Remarks GENERAL: This is a well-nourished, well-developed patient, in no apparent distress. HEENT: Normocephalic. Pupils equal round and reactive. Nose without bleeding. Airway patent. NECK: Trachea midline. No JVD. Supple. CARDIOVASCULAR: Regular rate and rhythm without murmurs, gallops, or rubs. RESPIRATORY: Clear to auscultation. Breath sounds equal bilaterally. No wheezes , rales, or rhonchi. GASTROINTESTINAL: Abdomen soft, non-tender, nondistended. Bowel Sounds normoactive x4. MUSCULOSKELETAL: Extremities without clubbing, cyanosis. Left upper extremity edema, left hand edema +2 [address] and cast in place. NEUROLOGICAL: Awake and alert. Oriented x 3. No focal neuro deficit. TURNER. Normal speech. Procedures Status post ORIF oblique fracture of the left humeral shaft A/P Problem List: (1) Right humeral fracture ICD Code: S42.301A Status: Acute (2) HLD (hyperlipidemia) ICD Code: E78.5 Status: Acute (3) DM (diabetes mellitus) ICD Code: E11.9 Status: Acute (4) HTN (hypertension) ICD Code: I10 Status: Acute Assessment and Plan Patient is a 66-year-old white female who came in to the hospital status post ORIF for oblique fracture of the left humeral shaft. Consulted for medical management. Status post ORIF for oblique fracture of the left humeral shaft -orthopedic service management - PT/OT consult - Pain management Uncontrolled, DM 2 - hemoglobin A1c 12.6 - done at [facility] - Start aspart insulin sliding scale, Levemir 10 units daily at bedtime - Accu-Cheks before meals and at bedtime - hematology nurse educator - Discussed extensively with patient and son compliance of medication management. Unable to start metformin for now secondary to increase creatinine , poor kidney function. Poor kidney function possibly secondary to long-term diabetes uncontrolled. Patient agrees to use insulin when discharged home. Will follow-up with a new PCP for further management. HLD - calculated AES CVD risk 10 years 23% - Discussed with patient, and family member - son. Increased risk for CVD event. Will start Lipitor 40mg for now. Possible need for increase to 80 mg in outpatient setting. Needs to follow-up with PCP to monitor lipid profile in 3 months. Agrees with plan. Uncontrolled, HTN - continue amlodipine 10 mg daily, increase lisinopril 20 mg daily, clonidine when necessary - Monitor BP trend DVT prop SCD and early ambulation. Written by Nena Tracy, acting as scribe for Dr. Peace on 11/20/16 at 11:20. The documentation accurately reflects the work performed [id number] by me, Ronald Peace D.O on 11/20/16 at 11:20. Discharge Planning Plan to discharge home tomorrow as per primary team. Problem Qualifiers (1) DM (diabetes mellitus): Nena DunnP Nov 20, 2016 13:49 Ingrid Peace DO Nov 20, 2016 22:22
--- NOTE | 2016-11-20 17:57 | EKG ---
Date Performed: 11/17/2016 Time Performed: 21:55:46 PTAGE: 66 years EKG: Sinus rhythm MODERATE ST DEPRESSION ABNORMAL QRS-T ANGLE ABNORMAL ECG NO PREVIOUS TRACING DOCTOR: Domenica Huston Interpretating Date/Time 11/20/2016 17:56:59
[2016-11-20] MEDS: POLYETHYLENE GLYCOL 17 GM PKG PO SCH (20:24)
[2016-11-20] MEDS: ATORVASTATIN 40 MG TAB PO SCH (20:25)
[2016-11-20] MEDS: INSULIN DETEMIR 100 UNITS/ML VIAL SQ SCH (20:32)
[2016-11-21] VITALS: BP 144/64; PULSE 67; RESP 18; TEMP 97; O2SAT 96
[2016-11-21] MEDS: ONDANSETRON HCL 4 MG/2 ML VIAL IVP PRN ×3 (00:25→13:20)
[2016-11-21] MEDS: INSULIN ASPART SUPPLEMENTAL SCALE SQ SCH ×3 (05:41→16:34)
[2016-11-21] MEDS: ACETAMINOPHEN/HYDROcodone 325 MG/10 MG TAB PO PRN ×3 (05:42→16:03)
[2016-11-21 08:00] VITALS: BP 125/64; PULSE 60; RESP 17; TEMP 96.5; O2SAT 100
[2016-11-21] MEDS: MAGNESIUM HYDROXIDE SUSP 30 ML CUP PO SCH (09:00)
[2016-11-21] MEDS ORDERED: LISINOPRIL 20 MG TAB PO SCH (09:00)
[2016-11-21] MEDS: BISACODYL EC 5 MG TABEC PO SCH (09:00)
[2016-11-21] MEDS: DOCUSATE SODIUM 50 MG/SENNA 8.6 MG TAB PO SCH (09:00)
[2016-11-21] MEDS: CALCIUM/VITAMIN D 250 MG/125 U TAB PO SCH ×2 (09:01→13:20)
[2016-11-21] MEDS: SODIUM CHLORIDE 0.9% FLUSH 5 ML FLUSH IVF SCH (09:02)
[2016-11-21] MEDS: INSULIN ASPART 1,000 UNITS/10 ML VIAL SQ SCH ×2 (09:17→14:56)
[2016-11-21] MEDS ORDERED: LISI-515 PO (09:47)
[2016-11-21] MEDS ORDERED: NOVOLOGP2 SQ ×2 (09:47)
[2016-11-21] MEDS ORDERED: AMLO10 PO (09:47)
[2016-11-21] MEDS ORDERED: OYST250T4 PO (09:47)
[2016-11-21] MEDS ORDERED: LIPI40TA PO (09:47)
[2016-11-21] MEDS ORDERED: LEVEMIR SQ (09:47)
--- NOTE | 2016-11-21 09:56 | HHI.PR ---
Subjective Remarks Follow up for left distal humerus fracture, DM. Patient used prune juice, milk of Mag but did not have any BM and subsequently used Dulcolax supp which caused multiple episodes of diarrhea. She has had two episodes today. No fever, chills. Sitting in her chair. at bedside. Objective Vitals Vital Signs Date Time Temp Pulse Resp B/P Pulse Ox O2 Delivery O2 Flow Rate FiO2 11/21/16 00:00 97.0 67 18 144/64 96 11/20/16 23:10 96 21 11/20/16 20:00 97.9 98 16 132/82 95 11/20/16 18:00 96.9 68 16 118/62 100 11/20/16 12:00 97.6 56 16 123/59 100 11/20/16 11:11 98 Nasal Cannula 3.00 I/O 11/20/16 11/20/16 11/20/16 11/21/16 11/21/16 11/21/16 07:00 15:00 23:00 07:00 15:00 23:00 Intake Total 240 ml 240 ml 480 ml 480 ml Balance 240 ml 240 ml 480 ml 480 ml Intake Oral 240 ml 240 ml 480 ml 480 ml # Voids 2 2 2 2 # Bowel Movements 0 0 2 4 1 Result Diagram: 11/18/16 0534 11/19/16 0846 Imaging Last Impressions Humerus X-Ray 11/18/16 0000 Signed Impressions: Service Date/Time: Friday, November 18, 2016 10:46 - CONCLUSION: Anatomic alignment. Cesar Peralta MD FACR Objective Remarks GENERAL: AOX3, NAD. SKIN: Warm and dry. HEAD: Normocephalic. EYES: No scleral icterus. No injection or drainage. NECK: Supple, trachea midline. No JVD or lymphadenopathy. CARDIOVASCULAR: Regular rate and rhythm without murmurs, gallops, or rubs. RESPIRATORY: Breath sounds equal bilaterally. No accessory muscle use. GASTROINTESTINAL: Abdomen soft, non-tender, nondistended. MUSCULOSKELETAL: No cyanosis, or edema. s/p ORIF Left distal humerus. BACK: Nontender without obvious deformity. No CVA tenderness. Procedures Status post ORIF oblique fracture of the left humeral shaft A/P Problem List: (1) Right humeral fracture ICD Code: S42.301A Status: Acute (2) HLD (hyperlipidemia) ICD Code: E78.5 Status: Acute (3) DM (diabetes mellitus) ICD Code: E11.9 Status: Acute (4) HTN (hypertension) ICD Code: I10 Status: Acute Assessment and Plan Patient is a 66-year-old white female who came in to the hospital status post ORIF for oblique fracture of the left humeral shaft. Consulted for medical management. Status post ORIF for oblique fracture of the left humeral shaft -orthopedic service management - PT/OT consult - Pain management Uncontrolled, DM 2 - hemoglobin A1c 12.6 - done at [facility] - Start aspart insulin sliding scale, Levemir 10 units daily at bedtime - Accu-Cheks before meals and at bedtime - diabetic educator - Discussed extensively with patient and son compliance of medication management. Unable to start metformin for now secondary to increase creatinine , poor kidney function. Poor kidney function possibly secondary to long-term diabetes uncontrolled. Patient agrees to use insulin when discharged home. Will follow-up with a new PCP for further management. HLD - calculated AES CVD risk 10 years 23% - Discussed with patient, and family member - son. Increased risk for CVD event. Will start Lipitor 40mg for now. Possible need for increase to 80 mg in outpatient setting. Needs to follow-up with PCP to monitor lipid profile in 3 months. Agrees with plan. Uncontrolled, HTN - continue amlodipine 10 mg daily, increase lisinopril 20 mg daily, clonidine when necessary - Monitor BP trend DVT prop SCD and early ambulation. 11/21/2016: Orthopedic surgery is the primary attending and cleared for discharge. I have added insulin prescriptions as well as anti-hypertensives as well as statin. Patient's daughter is an RN and patient also has received diabetic education in the hospital. She would like to to get further diabetic education in [place]. If patient's bowel movements slow down, she should be able to go home with home health today. Based on orthopedic surgery clearance, I went ahead and placed discharge orders. Problem Qualifiers (1) DM (diabetes mellitus): Ingrid Peace DO Nov 21, 2016 9:56 am
--- NOTE | 2016-11-21 09:57 | HHI.DS ---
Discharge Summary Admission Date Nov 17, 2016 at 8:15 pm Discharge Date: Nov 21, 2016 Admitting Diagnosis (1) Right humeral fracture ICD Code: S42.301A Diagnosis: Principal (2) HLD (hyperlipidemia) ICD Code: E78.5 (3) DM (diabetes mellitus) ICD Code: E11.9 (4) HTN (hypertension) ICD Code: I10 Procedures Status post ORIF oblique fracture of the left humeral shaft Brief History - From Admission Patient is a 66-year-old female with known history of hypertension, diabetes type 2 her on her own decided to discontinue all her medications and going to alternate alternative medications a year ago. In the past she was on glyburide. She was transferred here from [facility] after tripping on something on the ground and sustained an oblique fracture of the left humeral shaft.. She was admitted under orthopedic service and underwent [facility] hypertension and diabetes. Patient currently denies any pain nausea or vomiting. Baseline is up ambulatory with no assistive device. She doesn't regular check her blood sugars. On review of transfer records from [facility] her hemoglobin A1c was 12.6 .. she was started on Norvasc 10 mg daily and Levemir 10 units at bedtime. An echo was done which shows an ejection fraction of 80%. She was placed on hydrocodone 5/325 when necessary every 6 for pain CBC/BMP: 11/18/16 0534 11/19/16 0846 Significant Findings Laboratory Tests Test 11/19/16 08:46 Blood Urea Nitrogen 31 MG/DL (7-18) Creatinine 1.56 MG/DL (0.50-1.00) Estimat Glomerular Filtration 33 ML/MIN (>89) Rate Random Glucose 240 MG/DL (74-106) Albumin 2.6 GM/DL (3.4-5.0) Triglycerides Level 180 MG/DL (42-150) LDL Cholesterol 116 MG/DL (0-99) Imaging Last Impressions Humerus X-Ray 11/18/16 0000 Signed Impressions: Service Date/Time: Friday, November 18, 2016 10:46 - CONCLUSION: Anatomic alignment. Cesar Peralta MD FACR PE at Discharge GENERAL: AOX3, NAD. SKIN: Warm and dry. HEAD: Normocephalic. EYES: No scleral icterus. No injection or drainage. NECK: Supple, trachea midline. No JVD or lymphadenopathy. CARDIOVASCULAR: Regular rate and rhythm without murmurs, gallops, or rubs. RESPIRATORY: Breath sounds equal bilaterally. No accessory muscle use. GASTROINTESTINAL: Abdomen soft, non-tender, nondistended. MUSCULOSKELETAL: No cyanosis, or edema. s/p ORIF Left distal humerus. BACK: Nontender without obvious deformity. No CVA tenderness. Pt update on day of discharge Ms. Araya has had 2 BM today. Otherwise she is doing well. Sitting in her chair. No acute concerns. Denies any fever, chills. Hospital Course Patient is a 66-year-old white female who came in to the hospital status post ORIF for oblique fracture of the left humeral shaft. Consulted for medical management. Status post ORIF for oblique fracture of the left humeral shaft -orthopedic service management - PT/OT consult - Pain management Uncontrolled, DM 2 - hemoglobin A1c 12.6 - done at [facility] - Start aspart insulin sliding scale, Levemir 10 units daily at bedtime - Accu-Cheks before meals and at bedtime - ems educator - Discussed extensively with patient and son compliance of medication management. Unable to start metformin for now secondary to increase creatinine , poor kidney function. Poor kidney function possibly secondary to long-term diabetes uncontrolled. Patient agrees to use insulin when discharged home. Will follow-up with a new PCP for further management. HLD - calculated AES CVD risk 10 years 23% - Discussed with patient, and family member - son. Increased risk for CVD event. Will start Lipitor 40mg for now. Possible need for increase to 80 mg in outpatient setting. Needs to follow-up with PCP to monitor lipid profile in 3 months. Agrees with plan. Uncontrolled, HTN - continue amlodipine 10 mg daily, increase lisinopril 20 mg daily, clonidine when necessary - Monitor BP trend DVT prop SCD and early ambulation. 11/21/2016: Orthopedic surgery is the primary attending and cleared for discharge. I have added insulin prescriptions as well as anti-hypertensives as well as statin. Patient's daughter is an RN and patient also has received diabetic education in the hospital. She would like to to get further diabetic education in [place]. Based on orthopedic surgery clearance, I went ahead and placed discharge orders. Bowel pattern improved and patient was subsequently discharged. Pt Condition on Discharge: Good Discharge Disposition: Disch w/ Home Health Serv Discharge Time: > 30 minutes Discharge Instructions DIET: Follow Instructions for: Diabetic Diet Activities you can perform: Regular-No Restrictions, See Additionl Instruction Other Activity Instructions: Left humerus fracture s/p ORIF - NWB Follow up Referrals: Orthopedics - 12/02/16 @ [facility] with Ramon Gonsalez MD PCP Follow-up - 1 Week New Medications: Hydrocodone-Acetaminophen ([place]) 10-325 Mg Tab 1 TAB PO Q4H PRN PAIN #60 Ref 0 TAB Insulin Aspart Inj (Novolog Inj) 1,000 Unit/10 Ml Vial 1-9 UNITS SQ ACHS Max dose at bedtime:( )units; sugars less than 70,(0)units; sugars 150-199,(1) unit; sugars 200-249,(3) units; sugars 250-299,(5) units; sugars 300-349,(7) units; sugars greater than 349,(9) units Blood Sugar Management #10 Ref 0 ML Ondansetron (Zofran) 4 Mg Tab 4 MG PO Q6HR PRN NAUSEA OR VOMITING Days 14 Ref 0 TAB Amlodipine (Norvasc) 10 Mg Tab 10 MG PO DAILY Blood Pressure Management Days 30 TAB Atorvastatin (Lipitor) 40 Mg Tab 40 MG PO HS Cholesterol Management Days 30 TAB Calcium Carbonate-Cholecalciferol (Oyster Shell Calcium/Vitamin D) 250-125 Mg- Unit Tab 250 MG PO TID calcium Days 30 TAB Insulin Aspart Inj (Novolog Inj) 1,000 Unit/10 Ml Vial 5 UNITS SQ TIDAC Diabetes Days 30 INJECTION Insulin Detemir Inj (Levemir Inj) 1,000 unit/ 10 ML Vial 10 UNITS SQ HS Diabetes Days 30 INJECTION Lisinopril (Lisinopril) 20 Mg Tab 20 MG PO DAILY Blood Pressure Management Days 30 TAB Ingrid Peace DO Nov 21, 2016 09:57
[2016-11-21 11:25] VITALS: O2SAT 95
[2016-11-21 12:00] VITALS: BP 108/58; PULSE 57; RESP 18; TEMP 97.4; O2SAT 98
[2016-11-21] MEDS: SODIUM CHLOR 0.9% 1000 ML INJ 1,000 ML IV SCH (14:30)
--- NOTE | 2016-11-21 14:50 | PD.ORT.PN ---
Subjective Subjective Remarks Patient states she feel better today. Pain controlled. Objective Vitals Vital Signs Date Time Temp Pulse Resp B/P Pulse Ox O2 Delivery O2 Flow Rate FiO2 11/21/16 12:00 97.4 57 18 108/58 98 11/21/16 11:25 95 21 11/21/16 08:00 96.5 60 17 125/64 100 11/21/16 00:00 97.0 67 18 144/64 96 11/20/16 23:10 96 21 11/20/16 20:00 97.9 98 16 132/82 95 11/20/16 18:00 96.9 68 16 118/62 100 I/O 11/20/16 11/20/16 11/20/16 11/21/16 11/21/16 11/21/16 07:00 15:00 23:00 07:00 15:00 23:00 Intake Total 240 ml 240 ml 480 ml 480 ml Balance 240 ml 240 ml 480 ml 480 ml Intake Oral 240 ml 240 ml 480 ml 480 ml # Voids 2 2 2 2 # Bowel Movements 0 0 2 4 1 Result Diagram: 11/18/16 0534 11/19/16 0846 Objective Remarks LUE: dressings clean and dry. intact. good extension of wrist and fingers. full sensation to median/ulnar nerve. +swelling of hand Assessment & Plan Assessment and Plan 1) Left Distal Humerus Fx s/p ORIF - POD 4 -NWB -OT for pendulums -daily dressing changes -plan for DC home today with C -f/u with [facility] or [facility] in 2 weeks -orthopedically stable for discharge Ron Kebede Nov 21, 2016 14:50
== END 2016-11-21 17:14 | disposition home health service (06) | DRG 493 ==
LOC: N06B 20:15 → N06A 11-18 15:11
PROVIDERS: ADMIT Orthopaedic Surgery Orthopaedic Trauma; ATTEND Orthopaedic Surgery Orthopaedic Trauma
PROC: 0PSG04Z Reposition Left Humeral Shaft with Internal Fixation Device, Open Approach (ICD-10-PCS; principal; 2016-11-18 09:15)
DX: S42.332A Displaced oblique fracture of shaft of humerus, left arm, initial encounter for closed fracture (principal); N17.9 Acute kidney failure, unspecified; I10 Essential (primary) hypertension; E78.5 Hyperlipidemia, unspecified; E11.65 Type 2 diabetes mellitus with hyperglycemia; M19.90 Unspecified osteoarthritis, unspecified site; W01.0XXA Fall on same level from slipping, tripping and stumbling without subsequent striking against object, initial encounter; Y93.9 Activity, unspecified; Y92.9 Unspecified place or not applicable; Z91.14 Patient's other noncompliance with medication regimen
CPT/HCPCS: 73060; 76000; 80048; 80053; 80061; 82948; 85025; 85610; 93005; 94150; C1713; J0131; J0690; J1100; J1580; J1815; J2060; J2270; J2405; J3010; J3370; J7030; J7050; J7120